=== PATIENT | female | born 1970 | race Caucasian/White ===

== ENCOUNTER 2018-01-18 10:37 | Emergency (ER) | payer OTHER ==
[~2018-01-18] VITALS: Ht 167.6 cm; Wt 64.5 kg
[2018-01-18 10:53] VITALS: BP 105/68
== END 2018-01-18 11:20 | disposition home or self-care (01) ==
LOC: EDBD 10:37 → ED 11:14
DX: S51.812D Laceration without foreign body of left forearm, subsequent encounter (principal); X58.XXXD Exposure to other specified factors, subsequent encounter
CPT/HCPCS: 99282

== ENCOUNTER 2018-09-23 04:50 | Emergency (ER) | payer BC ==
[~2018-09-23] VITALS: Ht 167.6 cm; Wt 68.2 kg
--- NOTE | 2018-09-23 05:01 | NUR ---
SHEFALI EVERETT FOR C/O "I AM GOING TO FROM DRINKING SO MUCH AND I NEED A COUNSELOR TO TALK TO." PT. DENIES SI/HI. STATES HAS BEEN DRINKING BEER EVERY DAY FOR THE LAST 3 DAYS "FROM THE TIME I WAKE UP UNTIL I FALL ASLEEP, AND I AM WORRIED I AM DYING." LAST DRINK 1 HOUR AGO. PT. DENIES ANY CP, N/V, SHAKES. PT. PLACED ON CONTINUOUS PULSE OX, HEART, AND B/P MONITORS. SINUS TACH NOTED ON MONITOR. CALL LIGHT PLACED IN REACH. CALL LIGHT IN REACH. ALL SAFETY MEASURES OBSERVED. AWAITING PROVIDER EVAL.
[2018-09-23] MEDS ORDERED: LORazepam 1MG TABLET ONE (05:25)
[2018-09-23] MEDS ORDERED: LORazepam 1MG TABLET PO ONE (05:30)
--- NOTE | 2018-09-23 05:35 | NUR ---
PT. REMOVED ALL MONITORS WHEN THIS RN ENTERED TO MEDICATE PT. PT. STATES "I DON'T WANT THAT ON ME". PT. EDUCATED ABOUT WHY MONITORS ARE BEING USED AND VERBALIZED UNDERSTANDING. PT. DRINKING WATER SO UA CAN BE PROVIDED. PT. ASKED THIS RN ABOUT CARDIC MONITOR "ARE YOU SURE IT'S OK FOR ME TO DRINK WATER WITH ALL THE ELECTRICAL WIRES ON ME." PT. REASSURED BOILER TUBE BLOWER IS SAFE AND NEEDS TO REMAIN IN PLACE. CALL LIGHT IN REACH. ALL SAFETY MEASURES OBSERVED. LAB AT BS.
[2018-09-23 05:49] LABS: BASOPHILS # (AUTO) 0.03 x10^3/uL (0-0.1); BASOPHILS % (AUTO) 0 % (0-1); EOSINOPHILS % (AUTO) 1 % (1-7); LYMPHOCYTES # (AUTO) 2.84 x10^3/uL (1-3.4); LYMPHOCYTES % (AUTO) 22 % (22-44); MD NO; MEAN CORPUSCULAR HEMOGLOBIN 30.9 pg (27.0-34.8); MEAN CORPUSCULAR HGB CONC 33.8 g/dL (32.4-35.8); MEAN CORPUSCULAR VOLUME 91.4 fL (80-100); MEAN PLATELET VOLUME 7.3 fL (7.4-10.4); MONOCYTES # (AUTO) 0.26 x10^3/uL (0.2-0.8); MONOCYTES % (AUTO) 2 % (2-9); NEUTROPHILS # (AUTO) 9.78 x10^3/uL (1.8-6.8); NEUTROPHILS % (AUTO) 75 % (42-75); PLATELET COUNT 466 x10^3/uL (130-400); RED BLOOD COUNT 4.43 x10^6/uL (3.82-5.3); RED CELL DISTRIBUTION WIDTH 14.7 % (9.6-15.2)
[2018-09-23 06:02] LABS: ALANINE AMINOTRANSFERASE 31 U/L (12-78); ALBUMIN 3.6 g/dL (3.4-5.0); ANION GAP 7 mmol/L (5-15); CALCIUM 8.6 mg/dL (8.5-10.1); CHLORIDE 105 mmol/L (98-107); CREATININE 0.68 mg/dL (0.55-1.02); SALICYLATE LEVEL 2.1 mg/dL (2.8-20.0)
[2018-09-23 06:06] LABS: ACETAMINOPHEN < 2 mcg/mL (10-30); ALKALINE PHOSPHATASE 91 U/L (45-117); BILIRUBIN,TOTAL 0.2 mg/dL (0.2-1.0); TOTAL PROTEIN 8.2 g/dL (6.4-8.2)
--- NOTE | 2018-09-23 07:04 | NUR ---
bedside report from FOZIA Ortiz, pt care assumed at this time. Pt asleep in bed, NAD, FOZIA Ortiz states that pt is aware that urine sample needed, WCTM.
--- NOTE | 2018-09-23 09:19 | NUR ---
bedside report to rn Luis Enrique, pt care transferred at this time.
[2018-09-23 09:32] VITALS: BP 115/69
== END 2018-09-23 09:34 | disposition home or self-care (01) ==
LOC: ED 05:52
DX: F10.120 Alcohol abuse with intoxication, uncomplicated (principal)
CPT/HCPCS: 36415; 80053; 80307; 80329; 84703; 85025; 93005; 99284; G0480

== ENCOUNTER 2018-12-31 03:40 | Emergency (ER) | payer BC ==
[~2018-12-31] VITALS: Ht 167.6 cm; Wt 66.0 kg
[2018-12-31 04:52] VITALS: BP 117/76
== END 2018-12-31 05:14 ==
LOC: ED 04:57
DX: F41.9 Anxiety disorder, unspecified (principal); R45.1 Restlessness and agitation; F10.239 Alcohol dependence with withdrawal, unspecified
CPT/HCPCS: 93005; 99284